=== PATIENT | female | born 1955 | race African-American/Black ===

== ENCOUNTER → 2018-04-01 | Outpatient (CLI) | payer MEDICARE, OTHER ==
[~2018-04-01] MED LIST: ATOR80TA18 PO; AZOP1OP10 OP; BRIM10DR2 OP; HISTORIAN; LATA2.5D19 OP; LEVO50TA7 PO; OLME1TAB28 PO; thyroid med
== END | disposition home or self-care (01) ==
LOC: RAD 09:52
PROVIDERS: ATTEND Internal Medicine
DX: M25.561 Pain in right knee (principal); M25.461 Effusion, right knee
CPT/HCPCS: 73562